=== PATIENT | female | born 1985 | race Caucasian/White ===

== ENCOUNTER 2024-01-12 01:37 | Inpatient (IN) | payer OTHER, SELFPAY ==
[2024-01-11 21:28] VITALS: BP 141/123
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
[2024-01-11] MEDS: NSS 1000 IV (22:50)
[2024-01-11] MEDS: ATIVAN 2 MG IV ×2 (22:50→23:32)
[2024-01-11] MEDS: THIAMINE INJECTION 200 MG IV (22:50)
[2024-01-11 23:04] LABS: % Basophils 1.6 % (0-2); % Eosinophils 2.2 % (0-6); % Immature Granulocytes 0.2 % (0-0.5); % Lymphocytes 7.6 % (20.5-51.1); % Monocytes 9.2 % (1.7-9.3); % Neutrophils 79.2 % (42.2-75.2); Absolute Basophils 0.1 10^3/uL (0-0.2); Absolute Eosinophils 0.1 10^3/uL (0-0.7); Absolute Lymphocytes 0.3 10^3/uL (1.2-3.4); Absolute Monocytes 0.4 10^3/uL (0.1-0.6); Absolute Neutrophils 3.5 10^3/uL (1.4-6.5); Hematocrit 35.3 % (37.0-47.0); Hemoglobin 12.9 g/dL (12.0-16.0); Mean Corp Hgb Conc. 36.5 g/dL (33.0-37.0); Mean Corpuscular Hgb 33.2 pg (27.0-31.0); Mean Corpuscular Volume 90.7 fL (81.0-99.0); Mean Platelet Volume 8.8 fL (7.4-10.4); Nucleated Red Blood Cells % 0 %; Platelet Count 315 10^3/uL (130-400); Red Blood Cell Count 3.89 10^6/uL (4.20-5.40); Red Cell Dist. Width 14.1 % (11.5-14.5); White Blood Cell Count 4.5 10^3/uL (4.8-10.8)
[2024-01-11 23:19] LABS: HCG, Serum Qualitative Screen Negative
[2024-01-11 23:23] LABS: ALT (SGPT) 33 U/L (0-35); AST (SGOT) 94 U/L (14-36); Acetaminophen < 10 ug/ml (10-30); Albumin 5.1 g/dl (3.5-5.0); Alkaline Phosphatase 75 U/L (38-126); Blood Urea Nitrogen 6 mg/dl (7-17); Calcium 8.9 mg/dl (8.4-10.2); Carbon Dioxide 22 mmol/L (22-30); Glucose 116 mg/dl (70-99); Magnesium 1.8 mg/dl (1.6-2.3); Phosphorus 3.3 mg/dl (2.5-4.5); Salicylate < 1.0 mg/dl (2.0-20.0); Total Bilirubin 0.9 mg/dl (0.2-1.3); Total Protein 8.3 g/dl (6.3-8.2); eGFR > 60.00
[2024-01-11 23:25] VITALS: BP 142/98
[2024-01-11 23:32] LABS: Alcohol 322 mg/dl
[2024-01-11 23:50] LABS: Chloride 93 mmol/L (98-107); Potassium 4.2 mmol/L (3.5-5.1); Sodium 138 mmol/L (135-145)
[2024-01-12] VITALS (21 sets, daily range): BP systolic 105–167; BP diastolic 73–121; BMI 15.5
--- NOTE | 2024-01-12 00:54 | EDRN ---
Delayed entry due to patient care. Went to go reassess patient when patient was found without the cardiac leads on, IV pulled out of patient and patient curled up in a ball on the bed. Patient was very restless in bed. Patient then slide off the bed
hitting only her buttocks. No complaints offered by patient at that time. Patient was able to get back into bed unassisted. Attempted to placed another without success. IV team with successful attempt. Patient confused at this time. Dr. Cortez at
bedside for assessment.
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
[2024-01-12] MEDS: ATIVAN 2 MG IV ×3 (04:19→10:44)
[2024-01-12] MEDS: NSS (PRESERVATIVE FREE) 1 ML IV ×4 (04:20→10:44)
[2024-01-12] MEDS: D5/0.9% SODIUM CHLORIDE 1000 IV (04:40)
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
[2024-01-12 06:11] LABS: Blood Urea Nitrogen 5 mg/dl (7-17); Calcium 7.9 mg/dl (8.4-10.2); Carbon Dioxide 19 mmol/L (22-30); Chloride 100 mmol/L (98-107); Estimated Creatinine Clearance 95 ml/min; Glucose 74 mg/dl (70-99); Potassium 3.7 mmol/L (3.5-5.1); Sodium 141 mmol/L (135-145); eGFR > 60.00
[2024-01-12] MEDS: ATIVAN 1 MG IV ×2 (06:42→20:04)
[2024-01-12 07:13] LABS: Folate 4.1 ng/ml (2.76-20); Vitamin B12 319 pg/ml (239-931)
[2024-01-12] MEDS: THIAMINE INJECTION 200 MG IV ×2 (07:48→20:03)
[2024-01-12] MEDS: FOLVITE 1 MG PO (07:48)
[2024-01-12] MEDS: ATIVAN 1 MG PO ×3 (09:29→15:07)
[2024-01-12] MEDS: NSS 1000 IV ×2 (09:31→18:18)
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
[2024-01-12] MEDS: PHENOBARBITAL 104 MG IV (10:47)
--- NOTE | 2024-01-12 10:53 | PTCARENOTE ---
Assumed care of patient at beginning of this shift from previous RN. Med sitter initiated at beginning of shift for patient safety due to increased restlessness and attempting to get OOB. Multiple episodes t/o this morning of increased restlessness
with HR increasing to as high as 150s. Patient sleeping on and off most of the morning, but continues with tremors throughout body, including head tremors. Ox3 but with occasional periods of detachments. Patient has required prn ativan; see worklist
for MSAS scores and MAR for med administration. Dr Suresh in to see patient and started phenobarbital. IVF changed to NSS @100ml/hr. telecommunications officer in to interview patient this morning.
--- NOTE | 2024-01-12 11:50 | PTCARENOTE ---
Received a call from [employer] that patient's father was here to visit and was given a room number (incorrect room number); however patient is listed as confidential. This nurse went in to speak with patient; confirmed that patient is Ox3 and
able to speak with father on the phone at that time giving him permission to come up. Soon after this nurse received another call from [employer] that a friend, Ewa, was here to see patient. Patient confirmed, with father present, that friend
can come up to visit. This nurse explained to patient that being listed as confidential means that anyone who would call the hospital, or come to visit, will not be given any information if patient is in this hospital or not. Also explained to
father when he was in her room. Bridgett Dumont, nurse manager merchandising, and Cathy Pyle, nurse educator, also made aware. This nurse also called and notified Meek Bautista, director community organization.
--- NOTE | 2024-01-12 12:08 | PTCARENOTE ---
Patient requested her father be put as emergency contact.
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
[2024-01-12] MEDS: PHENOBARBITAL 97.5 MG IV ×2 (16:06→22:04)
--- NOTE | 2024-01-12 16:19 | PTCARENOTE ---
Patient continues to be very tremulous whole body when awake; unable to hold pill to place in her mouth by herself and unable to hold spoon to feed herself. MSAS continued as ordered. HR into the 130s-150s when awake with whole body tremors. When
she is asleep, HR 90s-115; tremors felt but not always seen. POx 97% on RA.
--- NOTE | 2024-01-12 16:23 | CM ---
cell manager reviewed patient's chart and met with patient and patient states that she lives alone, patient currently going through withdrawal and unable to provide history. Patient's father at bedside states patient can stay with him when stable,
but he would like to see patient set up with treatment.
Plan; To discuss options with patient when patient is more alert.
[2024-01-12 17:15] LABS: Urine Albumin Negative (Neg - Trace); Urine Bilirubin Negative (Negative); Urine Character Slightly Cloudy (Clear); Urine Color Yellow; Urine Glucose Negative (Negative); Urine Ketone 1+ (Negative); Urine Leukocyte Negative (Negative); Urine Nitrite Negative (Negative); Urine Occult Blood 4+ (Negative); Urine Urobilinogen Negative (Neg - 1+)
[2024-01-12 17:29] LABS: Urine Bacteria Many (Negative); Urine White Cell 0-2 /HPF (0-5)
[2024-01-12 17:36] LABS: Benzodiazepines Positive (Negative); Marijuana Positive (Negative)
[2024-01-12 17:37] LABS: Amphetamines Negative (Negative); Barbiturates Positive (Negative); Buprenorphine Negative (Negative); Cocaine Negative (Negative); Methadone Negative (Negative); Methamphetamines Negative (Negative); Opiates Negative (Negative); Phencyclidine Negative (Negative); Tricyclic Antidepressants Negative (Negative)
[2024-01-12 17:54] LABS: Fentanyl, Urine Negative (Negative)
[2024-01-12] MEDS: LOVENOX 40 MG SC (18:19)
[2024-01-12] MEDS: NSS (PRESERVATIVE FREE) 0.5 ML IV (20:05)
--- NOTE | 2024-01-12 23:20 | PTCARENOTE ---
Assumed care of pt at 1930, pt diaphoretic, restless and becoming agitated. Heart rate 150 and pt tremulous and unable to get OOB with assist to bsc. Pt requests bedpan and needed assist. She is oriented but has tangental thoughts and side
conversations under her breath, She denies hallucinations. IV Ativan givena nd effective, pt then calmer and able to get OOB to BSC with 1 Assist, though heart rate up to 150-170 on bsc. returns to low 100s once BTB
[2024-01-13] VITALS (14 sets, daily range): BP systolic 127–166; BP diastolic 92–110
--- NOTE | 2024-01-13 02:53 | PTCARENOTE ---
Assumed care at 2300. pt sleeping comfortably in bed. NSR, HR controlled 90's. Easily aroused, HR increases when awake to 110's. BP's have been running a little higher, diastolic, will continue to monitor. Neuro checks completed. Pt is not
interested in being assessed, seems bothered and agitated. MSAS protocol being followed. Pt has been sleeping soundly and has been scoring low, no need for ativan so far. Will monitor closely.
[2024-01-13] MEDS: NSS 1000 IV ×2 (03:26→12:26)
[2024-01-13] MEDS: ATIVAN 1 MG IV ×4 (05:23→21:27)
[2024-01-13] MEDS: NSS (PRESERVATIVE FREE) 1 ML IV (05:23)
[2024-01-13 06:04] LABS: Hematocrit 30.7 % (37.0-47.0); Hemoglobin 10.7 g/dL (12.0-16.0); Mean Corp Hgb Conc. 34.9 g/dL (33.0-37.0); Mean Corpuscular Hgb 32.4 pg (27.0-31.0); Mean Platelet Volume 8.6 fL (7.4-10.4); Platelet Count 213 10^3/uL (130-400)
[2024-01-13 06:08] LABS: ALT (SGPT) 22 U/L (0-35); AST (SGOT) 44 U/L (14-36); Albumin 3.6 g/dl (3.5-5.0); Alkaline Phosphatase 58 U/L (38-126); Blood Urea Nitrogen < 2 mg/dl (7-17); Calcium 7.6 mg/dl (8.4-10.2); Carbon Dioxide 20 mmol/L (22-30); Chloride 101 mmol/L (98-107); Estimated Creatinine Clearance 95 ml/min; Glucose 85 mg/dl (70-99); Potassium 3.4 mmol/L (3.5-5.1); Sodium 135 mmol/L (135-145); Total Bilirubin 1.2 mg/dl (0.2-1.3); Total Protein 6.3 g/dl (6.3-8.2); eGFR > 60.00
[2024-01-13] MEDS: THIAMINE INJECTION 200 MG IV ×2 (08:49→19:48)
[2024-01-13] MEDS: FOLVITE 1 MG PO (08:49)
[2024-01-13] MEDS: PHENOBARBITAL 97.5 MG IV ×3 (08:49→19:48)
--- NOTE | 2024-01-13 09:05 | PTCARENOTE ---
Addendum entered by Naye Cerna RN 01/13/24 10:11:
Med sitter maintained for patient safety.
Original Note:
Assumed care of patient at beginning of this shift from previous RN; patient sleeping at that time. Patient awakened and given morning meds. This RN then assisted patient OOB to commode; large amount of urine mixed with large liquid bm, unmeasurable
d/t being mixed. HR to the 170s when OOB; recovered to 109-111 when back in bed. Continues with whole body tremors but able to put pill in her mouth by herself this morning.
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
--- NOTE | 2024-01-13 11:37 | PTCARENOTE ---
Patient refused MRI; Dr Suresh made aware via tiger text.
[2024-01-13] MEDS: NSS (PRESERVATIVE FREE) 0.5 ML IV ×3 (14:00→21:26)
--- NOTE | 2024-01-13 14:10 | PTCARENOTE ---
Called by med sitter that patient trying to get OOB. Patient stated she needed to go to the bathroom; assisted to commode x1. HR 170s when on commode; visible tremors and restlessness. Medicated with ativan as ordered d/t MSAS score 8. Patient
currently back in bed; HR 107. See worklist for MSAS scores and MAR for med administration.
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
[2024-01-13] MEDS: KCL 40 MEQ PO (15:43)
--- NOTE | 2024-01-13 15:50 | PTCARENOTE ---
Dr Suresh in to see patient; this nurse made him aware that HR up to 170s when OOB to commode and BP elevated with DBP 105. Diet increased; patient updated. She stated to this nurse that she wanted to go home tomorrow.
--- NOTE | 2024-01-13 16:04 | CM ---
Patient with Dx Alcohol use disorder with acute alcohol withdrawal. Receiving IV Phenobarb, IV Ativan prn. MSAS per nursing.
Seen by Psych: In pt rehab perhaps on a dual dx unit should be considered
Request from Margot, itting x [phone] to confirm insurance. Attempted to meet with patient this morning who was sleeping.
Spoke with patient this afternoon; she agrees to speak with [facility], however she is also saying she would like to leave. She agrees to wait to speak with them.
Patient confirmed she is not employed and has no insurance---> info given to Margot in Admitting.
Spoke with [facility] Hinson about referral. Francisco will see the patient this evening.
Plan follow up with [facility].
[2024-01-13] MEDS: LOVENOX 40 MG SC (17:12)
--- NOTE | 2024-01-13 19:03 | PTCARENOTE ---
Matilde met with patient; he stated patient denied drinking.
--- NOTE | 2024-01-13 19:41 | PTCARENOTE ---
Received pt at change of shift. Pt very anxious and tearful about being here in the hospital. HR running from 110 to 150s/170s. Very tremulous and wants to leave AMA. Administering PRN Ativan per MSAS protocol. Bed alarm active and medsitter in
place.
[2024-01-14] VITALS (8 sets, daily range): BP systolic 124–141; BP diastolic 86–122
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
[2024-01-14 06:13] LABS: Hematocrit 29.1 % (37.0-47.0); Hemoglobin 10.1 g/dL (12.0-16.0); Mean Corp Hgb Conc. 34.7 g/dL (33.0-37.0); Mean Corpuscular Hgb 32.1 pg (27.0-31.0); Mean Corpuscular Volume 92.4 fL (81.0-99.0); Mean Platelet Volume 9.4 fL (7.4-10.4); Platelet Count 170 10^3/uL (130-400); Red Blood Cell Count 3.15 10^6/uL (4.20-5.40); Red Cell Dist. Width 13.6 % (11.5-14.5); White Blood Cell Count 2.9 10^3/uL (4.8-10.8)
[2024-01-14 06:29] LABS: Blood Urea Nitrogen < 2 mg/dl (7-17); Carbon Dioxide 21 mmol/L (22-30); Chloride 103 mmol/L (98-107); Estimated Creatinine Clearance 95 ml/min; Glucose 84 mg/dl (70-99); Potassium 3.6 mmol/L (3.5-5.1); Sodium 136 mmol/L (135-145); eGFR > 60.00
--- NOTE | 2024-01-14 08:00 | PTCARENOTE ---
Patient drowsy but arousable. 'Wants to go home'. Explained to patient that the doctors need to make that decision. Patient does not seem to understand her medical situation. Patient appetite poor and only ate one bite of food but is drinking of
fluids. Seemed interested when I suggested an ensure. ST on monitor HR 95-130. Med-sitter and bed alarm on. Will monitor frequently.
[2024-01-14] MEDS: PHENOBARBITAL 97.5 MG IV (09:20)
[2024-01-14] MEDS: THIAMINE INJECTION 200 MG IV (09:24)
[2024-01-14] MEDS: FLUSH (NSS) 1 FLUSH IV (09:24)
[2024-01-14] MEDS: FOLVITE 1 MG PO (09:24)
[2024-01-14] MEDS: NSS (PRESERVATIVE FREE) 0.5 ML IV (10:38)
[2024-01-14] MEDS: ATIVAN 1 MG IV (10:38)
--- NOTE | 2024-01-14 11:13 | CHAP ---
Asked by nurse to visit Nichole. She made good eye contact, and said repeatedly that she wants to go home. Assured her that she is loved and cared for by staff - we all want the best for her. Emotional support provided; business office associate remains
available.
--- NOTE | 2024-01-14 11:49 | PTCARENOTE ---
Patient activating bed alarm, trying to get out of bed without assistance and pulling monitor equipment off. Assist of 1 to BR, very unsteady on her feet. Last MSAS score was 9. Medicated with 1 mg IV ativan as per protocol.
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
--- NOTE | 2024-01-14 15:45 | PTCARENOTE ---
Patient activated bed alarm. Standing at bedside packing up her belongings to leave the hospital AMA. Her Father in the room trying to talk her out of leaving. Dr. Vasques evaluated patient and told her it was best that she stay in the hospital
but it she wanted to leave we could not stop her from leaving. Patient signed AMA papers. Patient escorted in wheelchair with staff. All belonging with the patient.
--- NOTE | 2024-01-16 12:41 | PN.CDI ---
CDI
- -
CDI:
Physician Documentation Request
Admit Date: 01/12/24 01:37
Dear Doctor Kerwin,
Patient admitted with alcohol withdrawal.
01/12 Applied Psychology Professor Assessment: 'Patient meets ASPEN criteria for severe protein calorie malnutrition. She lost 17% of her body weight in 3 months. She has consumed less than 50% of her daily energy needs for at least 1 month.'
Based on the above information and your assessment, which of the following most accurately represents the patient's nutritional status?
Severe protein calorie malnutrition
Other
Arco Criteria ([facility] Hospitalist 2017)
2 or more criteria must be present for either
non severe or severe malnutrition
Note that the criteria differs related to the
presence of an acute or chronic illness
Acute Illness Chronic Illness
Energy Intake Non Severe: <75% for >7 days Non Severe: <75% for >1 month
Severe: <50% for >5 days Severe: <75% for >1 month
Weight Loss Non Severe: 1-2% over 1 week Non Severe: 5% over 1 month
5% over 1 month 7.5% over 3 months
7.5% over 3 months 10% over 6 months
1 year N/A 20% over 1 year
Severe: >2% over 1 week Severe: >5% over 1 month
>5% over 1 month >7.5% over 3 months
>7.5% over 3 months >10% over 6 months
1 year N/A >20% over 1 year
Body Fat Non Severe: Mild Decrease Non Severe: Mild Loss
Severe: Moderate Decrease Severe: Severe Loss
Muscle Mass Non Severe: Mild Decrease Non Severe: Mild Loss
Severe: Moderate Decrease Severe: Severe Loss
Fluid Accumulation Non Severe: Mild Accumulation Non Severe: Mild Accumulation
Severe: Moderate to severe Severe: Moderate to severe
accumulation accumulation
Reduced Nuclear Engineering Technician Strength Non Severe: N/A Non Severe: N/A
Severe: Measurably reduced Severe: Measurably reduced
Additional criteria that can be used to Determine if Mild or Moderate Malnutrition ([employer] Manual 2018)
Mild Moderate Severe
Albumin gm/dl <3.0 gm/dl <2.5 gm/dl <2.0 gm/dl
Pre Albumin mg/dl <15 gm/dl <10 mg/dl <5.0 mg/dl
BMI <18.5 <17 <16
Use of terms such as suspected, likely, concern for, or probable (associated with a specific diagnosis that is being evaluated, monitored, or treated as if it exists) are acceptable and can be coded in the inpatient setting, when documented at the
time of discharge.
Thank you,
Josey Chavez RN, BSN
CDI Specialist
Available via [place] text
Please use your independent medical judgment in providing your response.
== END 2024-01-14 15:23 | disposition left against medical advice (07) | DRG 894 ==
LOC: IMU 01:37
PROVIDERS: ADMITTING PHYSICIAN Internal Medicine; ATTENDING PHYSICIAN Internal Medicine; CONSULT PHYSICIAN Psychiatry & Neurology Psychiatry; EMERGENCY PHYSICIAN Student in an Organized Health Care Education/Training Program
DX: F10.139 Alcohol abuse with withdrawal, unspecified (principal); E43 Unspecified severe protein-calorie malnutrition; K50.10 Crohn's disease of large intestine without complications; T74.11XA Adult physical abuse, confirmed, initial encounter; Z68.1 Body mass index [BMI] 19.9 or less, adult; F12.90 Cannabis use, unspecified, uncomplicated; Y90.8 Blood alcohol level of 240 mg/100 ml or more; T42.4X1A Poisoning by benzodiazepines, accidental (unintentional), initial encounter; E87.6 Hypokalemia; F10.129 Alcohol abuse with intoxication, unspecified
CPT/HCPCS: 70450; 80048; 80053; 80143; 80179; 80306; 80307; 81003; 81015; 82077; 82607; 82746; 83735; 84100; 84703; 85025; 85027; 87070; 87086; 96361; 96374; 96375; 96376; 99285